=== PATIENT | female | born 1980 | race Two or more races ===

== ENCOUNTER 2022-03-08 06:31 | Day surgery (SDC) | payer OTHER ==
[~2022-03-08] VITALS: Ht 167.6 cm; Wt 108.9 kg
== END 2022-03-08 12:15 | disposition home or self-care (01) ==
LOC: CIR.AMB 06:31
PROVIDERS: ATTEND Obstetrics & Gynecology
DX: N93.8 Other specified abnormal uterine and vaginal bleeding (principal); N72 Inflammatory disease of cervix uteri; Z20.822 Contact with and (suspected) exposure to COVID-19; E16.2 Hypoglycemia, unspecified